=== PATIENT | male | born 1990 ===

== ENCOUNTER 2019-08-09 10:11 | Emergency (ER) | payer SELFPAY ==
[2019-08-09 10:25] VITALS: BP 130/81
--- NOTE | 2019-08-09 10:54 | UC ---
Throat Pain/Nasal Tony HPI - HPI Summary HPI Summary: 28-year-old male comes in with a chief complaint of upper respiratory tract infection symptoms. About 6 days ago patient started to feel slightly unwell with runny nose and cold symptoms. His symptoms worsened with chills and feeling very fatigued. He slept quite a bit days 3 and 4 of his illness. On day 5 of his illness yesterday he felt quite a bit better and he was able to complete work while at home. Today he feels completely normal. During the episode he did have a mild sore throat. Reports it did not feel like strep throat. Patient's also had flu in the past and he stated it did not seem like the flu. - History of Current Complaint Chief Complaint: UCRespiratory Stated Complaint: SORE THROAT Time Seen by Provider: 08/09/19 10:42 Pain Intensity: 0 - Allergies/Home Medications Allergies/Adverse Reactions: Allergies Allergy/AdvReac Type Severity Reaction Status Date / Time No Known Allergies Allergy Verified 08/09/19 10:25 Home Medications: Home Medications NK [No Home Medications Reported] 08/09/19 [History Confirmed 08/09/19] PMH/Surg Hx/FS Hx/Imm Hx Previously Healthy: Yes - Surgical History Surgical History: None - Family History Known Family History: Positive: Non-Contributory - Social History Alcohol Use: Rare Substance Use Type: None Smoking Status (MU): Never Smoked Tobacco Review of Systems All Other Systems Reviewed And Are Negative: Yes Constitutional: Positive: Chills, Other - SEE HPI Skin: Positive: Negative Eyes: Positive: Negative ENT: Positive: Sore Throat, Nasal Discharge, Sinus Congestion Respiratory: Positive: Negative Cardiovascular: Positive: Negative Gastrointestinal: Positive: Negative Motor: Positive: Negative Neurovascular: Positive: Negative Musculoskeletal: Positive: Negative Neurological: Positive: Negative Psychological: Positive: Negative Is Patient Immunocompromised?: No Physical Exam Triage Information Reviewed: Yes Appearance: Well-Appearing, No Pain Distress, Well-Nourished Vital Signs: Initial Vital Signs Temp 98.4 F 08/09/19 10:19 Pulse 53 08/09/19 10:19 Resp 16 08/09/19 10:19 BP 130/81 08/09/19 10:19 Pulse Ox 98 08/09/19 10:19 Vital Signs Reviewed: Yes Eye Exam: Normal Eyes: Positive: Conjunctiva Clear ENT: Positive: Pharynx normal, TMs normal Neck: Positive: Supple Respiratory: Positive: Lungs clear, Normal breath sounds, No respiratory distress Cardiovascular: Positive: RRR Musculoskeletal: Positive: Strength Intact, ROM Intact Neurological: Positive: Alert Psychological: Positive: Age Appropriate Behavior Skin Exam: Normal Throat Pain/Nasal Course/Dx - Course Course Of Treatment: At this time the patient is asymptomatic. By history sounds like the patient out of viral upper respiratory tract infection. The last time he had any chills was at least 2 days ago. Patient's had both strep throat and the flu in the past and when discussing the symptoms patient didn't feel like it was either one of those. Patient's to get reevaluated if worse or any questions or concerns. - Differential Dx/Diagnosis Provider Diagnosis: Upper respiratory infection Discharge ED - Sign-Out/Discharge Documenting (check all that apply): Patient Departure All imaging exams completed and their final reports reviewed: No Studies - Discharge Plan Condition: Stable Disposition: HOME Patient Education Materials: Upper Respiratory Infection (ED) Forms: *Work Release Referrals: [facility] [place] [facility] [Outside] Additional Instructions: FOLLOW UP WITH YOUR DOCTOR IF NOT COMPLETELY IMPROVED. GET REEVALUATED SOONER IF NOT IMPROVED OR WORSE OR ANY QUESTIONS OR CONCERNS. - Billing Disposition and Condition Condition: STABLE Disposition: Home
== END 2019-08-09 10:55 | disposition home or self-care (01) ==
LOC: UCEAST 10:11
DX: J06.9 Acute upper respiratory infection, unspecified (principal)
CPT/HCPCS: 99201; G0463